=== PATIENT | female | born 1975 ===

== ENCOUNTER 2024-07-19 23:11 | Observation (INO) | payer BC ==
[2024-07-19 23:37] LABS: APPEARANCE,URINE SLIGHTLY CLOUDY (CLEAR); BILIRUBIN,URINE NEGATIVE (NEGATIVE); COLOR,URINE DARK YELLOW (YELLOW); GLUCOSE,URINE NEGATIVE (NEGATIVE); KETONES,URINE NEGATIVE (NEGATIVE); LEUKOCYTE ESTERASE,URINE NEGATIVE (NEGATIVE); NITRITE,URINE POSITIVE (NEGATIVE); OCCULT BLOOD,URINE NEGATIVE (NEGATIVE); PH,URINE 5.5 (5.0-9.0); PROTEIN,URINE 100 (NEGATIVE)
[2024-07-19] MEDS: LORazepam 2 MG/ML SDV IVPUSH ONE (23:52)
[2024-07-19 23:53] LABS: BASOPHILS PERCENT AUTO 0.2 % (0.0-1.0); EOSINOPHILS PERCENT AUTO 1.1 % (1.0-3.0); HEMATOCRIT 39.8 % (37.0-47.0); HEMOGLOBIN 12.4 g/dL (12.0-16.0); LYMPHOCYTES PERCENT AUTO 18.4 % (20.5-50.1); MEAN CORPUSCULAR HEMOGLOBIN 30.1 pg (27.0-34.0); MEAN CORPUSCULAR HGB CONC 31.2 g/dL (33.0-35.0); MEAN CORPUSCULAR VOLUME 96.6 fL (80-100); MONOCYTES PERCENT AUTO 11.9 % (2-8); NEUTROPHILS PERCENT AUTO 68.4 % (42.2-75.2); PLATELET COUNT,PLT 71 10^3/uL (150-450); RED BLOOD CELL COUNT 4.12 10^6/uL (4.2-5.4); WHITE BLOOD CELL COUNT,WBC 5.2 10^3/uL (5.0-10.0)
[2024-07-19 23:56] LABS: EPITHELIAL CELLS,URINE MANY /HPF (NOT SEEN); MUCUS,URINE MODERATE /LPF (NOT SEEN); RBC,URINE 0-5 /HPF (0-5)
[2024-07-19 23:57] LABS: BACTERIA,URINE FEW /HPF (0-FEW/HPF)
[2024-07-20] MEDS: Folic Acid 1 MG Tab PO ONE (00:01)
[2024-07-20] MEDS: Multivitamin Tab PO STA (00:01)
[2024-07-20] MEDS: Thiamine 100 MG Tab PO ONE (00:01)
[2024-07-20 00:19] LABS: ALANINE AMINOTRANSFERASE,ALT 142 U/L (14-59); ALBUMIN 4.1 g/dL (3.4-5.0); ALKALINE PHOSPHATASE 159 U/L (46-116); ANION GAP 14.1 mEq/L (7-13); ASPARTATE AMNIOTRANSFERASE,AST 204 U/L (15-37); BILIRUBIN TOTAL 1.8 mg/dL (0.2-1.0); BLOOD UREA NITROGEN,BUN 27 mg/dL (7-18); BUN/CREATININE RATIO 38.6 (No establ ref range); CALCIUM 10.2 mg/dL (8.5-10.1); CARBON DIOXIDE,CO2 30 mmol/L (21-32); CHLORIDE,CL 99 mmol/L (98-107); GLUCOSE RANDOM 105 mg/dL (70-99); MAGNESIUM 1.6 mg/dL (1.8-2.4); POTASSIUM,K 3.1 mmol/L (3.5-5.1); PROTEIN TOTAL,TP 8.4 g/dL (6.4-8.2); SODIUM,NA 140 mmol/L (136-145)
[2024-07-20 00:22] LABS: ACETAMINOPHEN 0 ug/mL (10-30 (Therapeutic)); ESTIMATED GFR 106 mL/min (>=60); ETHANOL BLOOD MEDICAL < 3 mg/dL (0)
[2024-07-20] MEDS: LORazepam 2 MG/ML SDV IVPUSH ONE ×2 (00:37→01:12)
[2024-07-20 00:43] LABS: AMPHETAMINES,URINE NEGATIVE (NEGATIVE); BARBITURATES,URINE NEGATIVE (NEGATIVE); BENZODIAZEPINE,URINE NEGATIVE (NEGATIVE); MDMA (ECSTASY), URINE NEGATIVE (NEGATIVE); METHADONE,URINE NEGATIVE (NEGATIVE); METHAMPHETAMINES,URINE NEGATIVE (NEGATIVE); OPIATES,URINE NEGATIVE (NEGATIVE); OXYCODONE,URINE NEGATIVE (NEGATIVE); PHENCYCLIDINE,URINE NEGATIVE (NEGATIVE); TCA,URINE POSITIVE (NEGATIVE)
[2024-07-20] MEDS: LORazepam 2 MG/ML SDV ONE (01:12)
[2024-07-20] MEDS: Sodium Chloride 0.9% 1,000 ML IV ONE (02:23)
[2024-07-20] MEDS: Potassium Chloride 20 MEQ in Premix Bag 1 BAG IV ONE (02:23)
[2024-07-20] MEDS: Magnesium Sulf/Wat 2 GM/50 mL 2 GM in Premix Bag 1 BAG IV ONE (04:35)
[2024-07-20] MEDS ORDERED: Albuterol/Ipratropium 3.0-0.5 MG/3 ML Neb Soln NEB PRN (09:52)
[2024-07-20] MEDS ORDERED: Ketorolac 30 MG/ML SDV IVPUSH PRN (09:52)
[2024-07-20] MEDS ORDERED: Polyethylene Glycol 3350 Powder 17 GM Packet PO PRN (09:52)
[2024-07-20] MEDS ORDERED: Sennosides/Docusate Sodium 50-8.6 MG Tab PO PRN (09:52)
[2024-07-20] MEDS ORDERED: Ondansetron 4 MG/2 ML SDV IVPUSH PRN (09:52)
[2024-07-20] MEDS ORDERED: Acetaminophen 325 MG Tab PO PRN (09:52)
[2024-07-20] MEDS ORDERED: Docusate Sodium 100 MG Cap PO PRN (09:52)
[2024-07-20] MEDS ORDERED: Melatonin 3 MG Tab PO PRN (09:52)
[2024-07-20 10:18] LABS: BASOPHILS PERCENT AUTO 0.2 % (0.0-1.0); EOSINOPHILS PERCENT AUTO 2.9 % (1.0-3.0); HEMATOCRIT 35.2 % (37.0-47.0); HEMOGLOBIN 11.9 g/dL (12.0-16.0); LYMPHOCYTES PERCENT AUTO 27.3 % (20.5-50.1); MEAN CORPUSCULAR HEMOGLOBIN 33.4 pg (27.0-34.0); MEAN CORPUSCULAR HGB CONC 33.8 g/dL (33.0-35.0); MEAN CORPUSCULAR VOLUME 98.9 fL (80-100); MONOCYTES PERCENT AUTO 15.8 % (2-8); NEUTROPHILS PERCENT AUTO 53.8 % (42.2-75.2); PLATELET COUNT,PLT 62 10^3/uL (150-450); RED BLOOD CELL COUNT 3.56 10^6/uL (4.2-5.4); WHITE BLOOD CELL COUNT,WBC 4.1 10^3/uL (5.0-10.0)
[2024-07-20 10:37] LABS: PROTHROMBIN TIME 10.4 SEC (9.0-12.0); PTT,PARTIAL THROMBOPLSTIN TIME 24.1 SEC (22.0-34.0)
[2024-07-20 10:39] LABS: A/G RATIO 0.94; ALBUMIN 3.3 g/dL (3.4-5.0); ANION GAP 9.4 mEq/L (7-13); BILIRUBIN DIRECT 0.5 mg/dL (0.0-0.2); BILIRUBIN TOTAL 1.6 mg/dL (0.2-1.0); BUN/CREATININE RATIO 40.4 (No establ ref range); CALCIUM 8.9 mg/dL (8.5-10.1); CREATININE 0.52 mg/dL (0.55-1.02); EST CRCL DRUG DOSING (CG) 122.51 mL/min; MAGNESIUM 2.3 mg/dL (1.8-2.4); POTASSIUM,K 3.4 mmol/L (3.5-5.1); PROTEIN TOTAL,TP 6.8 g/dL (6.4-8.2)
[2024-07-20] MEDS: cefTRIAXone 1 GM Vial IVPUSH SCH (10:46)
[2024-07-20] MEDS: LORazepam 2 MG/ML SDV IVPUSH PRN (10:53)
[2024-07-20] MEDS: Sodium Chloride 0.9% 10 ML Syringe FLUSH PRN (10:55)
[2024-07-20] MEDS: Potassium Chloride 10 MEQ in Premix Bag 1 BAG IV ONE (11:04)
[2024-07-20] MEDS: Cephalexin 500 MG Cap PO ONE (11:34)
[2024-07-20] MEDS: Dextrose 5%-0.9% NaCl 1,000 ML IV SCH (14:07)
[2024-07-20 16:26] LABS: FOLIC ACID > 20.0 ng/mL (8.6-58.9)
[2024-07-20] MEDS ORDERED: Flumazenil 0.1 MG/ML 5 ML MDV IVPUSH PRN (20:35)
[2024-07-20] MEDS ORDERED: LORazepam 2 MG/ML SDV IVPUSH PRN (20:35)
[2024-07-21 06:51] LABS: BASOPHILS PERCENT AUTO 0.3 % (0.0-1.0); EOSINOPHILS PERCENT AUTO 4.6 % (1.0-3.0); HEMATOCRIT 34.5 % (37.0-47.0); HEMOGLOBIN 11.6 g/dL (12.0-16.0); LYMPHOCYTES PERCENT AUTO 28.9 % (20.5-50.1); MEAN CORPUSCULAR HEMOGLOBIN 33.5 pg (27.0-34.0); MEAN CORPUSCULAR HGB CONC 33.6 g/dL (33.0-35.0); MEAN CORPUSCULAR VOLUME 99.7 fL (80-100); MONOCYTES PERCENT AUTO 15.8 % (2-8); NEUTROPHILS PERCENT AUTO 50.4 % (42.2-75.2); PLATELET COUNT,PLT 71 10^3/uL (150-450); RED BLOOD CELL COUNT 3.46 10^6/uL (4.2-5.4); WHITE BLOOD CELL COUNT,WBC 3.5 10^3/uL (5.0-10.0)
[2024-07-21 07:11] LABS: ANION GAP 8.2 mEq/L (7-13); BUN/CREATININE RATIO 29.4 (No establ ref range); CALCIUM 8.5 mg/dL (8.5-10.1); CREATININE 0.51 mg/dL (0.55-1.02); EST CRCL DRUG DOSING (CG) 115.22 mL/min; MAGNESIUM 2.1 mg/dL (1.8-2.4); POTASSIUM,K 4.2 mmol/L (3.5-5.1); PROTEIN TOTAL,TP 6.4 g/dL (6.4-8.2)
[2024-07-21 07:12] LABS: A/G RATIO 0.88
[2024-07-21] MEDS ORDERED: Thiamine 100 MG Tab PO SCH (21:00)
== END 2024-07-21 14:00 | disposition home or self-care (01) ==
LOC: DL.ED 23:11 → DL.MS 07-20 08:23
PROVIDERS: ADMIT Student in an Organized Health Care Education/Training Program; ATTEND Student in an Organized Health Care Education/Training Program
DX: F10.239 Alcohol dependence with withdrawal, unspecified (principal); F32.A Depression, unspecified
CPT/HCPCS: 36415; 80053; 80143; 80179; 80305; 80307; 81001; 82248; 82607; 82746; 83735; 85025; 85610; 85730; 87086; 87088; 87186; 93005; 96361; 96365; 96366; 96367; 96375; 96376; 99223; 99238; 99285; A9270; G0378; J0696; J2060; J3475; J3480; J7030; J7042